=== PATIENT | female | born 1995 | race Caucasian/White ===

== ENCOUNTER 2018-01-18 13:43 | Emergency (ER) | payer OTHER | END 2018-01-18 14:25 | disposition home or self-care (01) | LOC: FTE 13:43 | DX: O26.899 Other specified pregnancy related conditions, unspecified trimester (principal); R10.9 Unspecified abdominal pain; Z98.890 Other specified postprocedural states | CPT/HCPCS: 99285-25 ==

== ENCOUNTER 2018-01-18 14:38 | Inpatient (IN) | payer BC, OTHER ==
[~2018-01-18 14:38] MED LIST: EPINEPHrine 1 MG INJ; PROPOFOL 200 MG INJ
[2018-01-18] MEDS ORDERED: CARBOPROST 250 MCG INJ IM (15:30)
[2018-01-18] MEDS ORDERED: OXYTOCIN 30 UNITS/LR 500 ML IV ×2 (15:30→19:37)
[2018-01-18] MEDS ORDERED: METHYLERGONOVINE 0.2 MG INJ IM (15:30)
[2018-01-18] MEDS ORDERED: MISOPROSTOL 200 MCG TAB PR (15:30)
[2018-01-18] MEDS: TERBUTALINE 1 MG/ML INJ SC ×2 (15:52→18:10)
[2018-01-18] MEDS: LACTATED RINGER'S 1,000 ML IV ×2 (15:53→19:05)
[2018-01-18 15:57] LABS: ADD MAN DIFF? NO
[2018-01-18 15:59] LABS: WHITE BLOOD COUNT 10.8 10^3/ul (4.8-10.8)
[2018-01-18 15:59] LABS: ABNORMAL IP MESSAGE 1; BASOPHILS % 0.2 % (0.0-2.0); EOSINOPHILS # 0.1 10^3/ul (0.0-0.5); EOSINOPHILS % 0.6 % (0.0-7.0); HEMATOCRIT 35.1 % (37.0-47.0); HEMOGLOBIN 11.4 g/dl (12.0-16.0); LYMPHOCYTES # 2.3 10^3/ul (0.8-2.9); LYMPHOCYTES % 21.6 % (15.0-51.0); MEAN CORPUSCULAR HEMOGLOBIN 26.3 pg (29.0-33.0); MEAN CORPUSCULAR HGB CONC 32.5 g/dl (32.0-37.0); MEAN CORPUSCULAR VOLUME 80.9 fl (82.0-101.0); MONOCYTE # 0.7 10^3/ul (0.3-0.9); MONOCYTES % 6.1 % (0.0-11.0); NEUTROPHIL # 7.7 10^3/ul (1.6-7.5); PLATELET COUNT 189 10^3/UL (140-415); RED BLOOD COUNT 4.34 10^6/ul (4.20-5.40); RED CELL DISTRIBUTION WIDTH 13.7 % (11.5-14.5)
[2018-01-18 16:00] LABS: POSITIVE DIFF @See below
[2018-01-18 16:41] LABS: ADD UMIC YES; UR ASCORBIC ACID NEGATIVE (NEGATIVE); UR BILIRUBIN (Dip) NEGATIVE (NEGATIVE); UR BLOOD (Dip) 1+ mg/dL (NEGATIVE); UR CLARITY CLEAR (CLEAR); UR COLOR YELLOW (YELLOW); UR GLUCOSE (Dip) NEGATIVE (NEGATIVE); UR KETONES (Dip) NEGATIVE (NEGATIVE); UR LEUKOCYTE ESTERASE (Dip) NEGATIVE Leu/ul (NEGATIVE); UR MUCUS FEW /HPF (NONE SEEN); UR NITRITE (Dip) NEGATIVE (NEGATIVE); UR RBC 1 /HPF (0-5); UR SPECIFIC GRAVITY (Dip) 1.011 (1.003-1.030); UR TOTAL PROTEIN (Dip) NEGATIVE (NEGATIVE); UR UROBILINOGEN (Dip) NEGATIVE (NEGATIVE); UR WBC 2 /HPF (0-5)
[2018-01-18 16:50] LABS: INR 0.89; PARTIAL THROMBOPLASTIN TIME 26.8 Sec (23.0-35.0); PROTIME 12.1 Sec (11.9-14.9); PT RATIO 0.9
[2018-01-18 16:50] LABS: HEPATITIS B SURFACE ANTIGEN NEGATIVE (NEGATIVE)
[2018-01-18 16:56] LABS: AMPHETAMINE/METHAMPHETAMINE Negative (NEGATIVE); BARBITURATES Negative (NEGATIVE); BENZODIAZEPINES Negative (NEGATIVE); CANNABINOIDS Negative (NEGATIVE); COCAINE Negative (NEGATIVE); OPIATES Negative (NEGATIVE)
[2018-01-18 17:00] LABS: HIV 1&2 ANTIBODY NEGATIVE (NEGATIVE)
[2018-01-18] MEDS ORDERED: FAMOTIDINE 20 MG INJ (18:51)
[2018-01-18] MEDS ORDERED: ONDANSETRON 4 MG INJ (18:51)
[2018-01-18] MEDS ORDERED: METOCLOPRAMIDE 10 MG INJ (18:51)
[2018-01-18] MEDS: METOCLOPRAMIDE 10 MG INJ IV (19:00)
[2018-01-18] MEDS: FAMOTIDINE 20 MG INJ IV (19:00)
[2018-01-18] MEDS: CITRIC ACID/NA CITRATE 30 ML CUP PO (19:00)
[2018-01-18] MEDS: ONDANSETRON 4 MG INJ IV (19:04)
[2018-01-18] MEDS ORDERED: BUPIVACAINE 0.75%/DEXT (SPINAL) 2 ML INJ (19:26)
[2018-01-18] MEDS ORDERED: morphine SULFATE/PF (10 MG/10 ML) INJ (19:26)
[2018-01-18] MEDS ORDERED: OXYTOCIN 10 UNIT INJ (19:26)
[2018-01-18] MEDS ORDERED: NALOXONE (0.4 MG/ML) INJ IV (19:30)
[2018-01-18] MEDS ORDERED: FENTAnyl 50 MCG/ML VIAL IV ×2 (19:30)
[2018-01-18] MEDS ORDERED: HYDROmorphONE 1 MG/5 ML IV SYRINGE IV ×3 (19:30)
[2018-01-18] MEDS ORDERED: ZOLPIDEM 5 MG TAB PO (19:30)
[2018-01-18] MEDS ORDERED: KETOROLAC 30 MG INJ IV (19:30)
[2018-01-18] MEDS ORDERED: DIPHENHYDRAMINE 50 MG INJ IV ×2 (19:30)
[2018-01-18] MEDS ORDERED: HYDROmorphONE 0.5 MG/0.5 ML SYG IV ×2 (19:30)
[2018-01-18] MEDS ORDERED: ONDANSETRON 4 MG INJ IV ×2 (19:30)
[2018-01-18] MEDS ORDERED: MIDAZOLAM 1 MG/ML 2 ML INJ (20:56)
[2018-01-18 21:03] LABS: HEPATITIS C VIRAL ANTIBODY NEGATIVE (NEGATIVE)
[2018-01-18] MEDS: OXYTOCIN 30 UNITS/LR 500 ML IV (21:37)
[2018-01-18] MEDS: CEFAZOLIN 2 GM/50 ML (PMX) 50 ML IVPB (21:38)
[2018-01-19] MEDS ORDERED: OXYCODONE/ACETAMINOPHEN (5/325) TAB PO ×3 (00:30→19:30)
[2018-01-19] MEDS ORDERED: METHYLERGONOVINE 0.2 MG INJ IM (00:30)
[2018-01-19] MEDS ORDERED: IBUPROFEN 600 MG TAB PO (00:30)
[2018-01-19] MEDS ORDERED: MISOPROSTOL 200 MCG TAB PR (00:30)
[2018-01-19] MEDS ORDERED: OXYTOCIN 30 UNITS/LR 500 ML IV (00:30)
[2018-01-19] MEDS ORDERED: BISACODYL 10 MG SUPP PR (00:30)
[2018-01-19] MEDS ORDERED: ONDANSETRON 4 MG INJ IV (00:30)
[2018-01-19] MEDS ORDERED: ACETAMINOPHEN 325 MG TAB PO (00:30)
[2018-01-19] MEDS ORDERED: CARBOPROST 250 MCG INJ IM (00:30)
[2018-01-19] MEDS: OXYTOCIN 30 UNITS/LR 500 ML IV (01:27)
[2018-01-19] MEDS: CEFAZOLIN 1 GM/50 ML (PMX) 50 ML IVPB ×3 (03:50→18:13)
[2018-01-19] MEDS: LANOLIN 7 GM TUBE TOP (08:54)
[2018-01-19] MEDS: SENNA/DOCUSATE NA (8.6MG/50MG) TAB PO (08:55)
[2018-01-19] MEDS: DIPHENHYDRAMINE 50 MG INJ IV (09:26)
[2018-01-19 09:29] LABS: ADD MAN DIFF? NO
[2018-01-19 09:32] LABS: WHITE BLOOD COUNT 11.4 10^3/ul (4.8-10.8)
[2018-01-19 09:32] LABS: ABNORMAL IP MESSAGE 1; BASOPHILS % 0.3 % (0.0-2.0); EOSINOPHILS # 0.1 10^3/ul (0.0-0.5); EOSINOPHILS % 0.6 % (0.0-7.0); HEMATOCRIT 27.6 % (37.0-47.0); HEMOGLOBIN 9.1 g/dl (12.0-16.0); LYMPHOCYTES # 2.4 10^3/ul (0.8-2.9); LYMPHOCYTES % 21.3 % (15.0-51.0); MEAN CORPUSCULAR HEMOGLOBIN 26.9 pg (29.0-33.0); MEAN CORPUSCULAR VOLUME 81.7 fl (82.0-101.0); MEAN PLATELET VOLUME 13.6 fl (7.4-10.4); MONOCYTES % 8.6 % (0.0-11.0); NEUTROPHIL # 7.8 10^3/ul (1.6-7.5); NEUTROPHILS % 68.8 % (39.0-77.0); PLATELET COUNT 138 10^3/UL (140-415); RED BLOOD COUNT 3.38 10^6/ul (4.20-5.40); RED CELL DISTRIBUTION WIDTH 13.8 % (11.5-14.5)
[2018-01-19 09:34] LABS: POSITIVE DIFF @See below
[2018-01-19 10:01] LABS: RUBELLA ANTIBODY - IGG 1.73 index
[2018-01-19] MEDS: KETOROLAC 30 MG INJ IV (13:04)
[2018-01-19] MEDS: LACTATED RINGER'S 1,000 ML IV ×2 (13:06→23:30)
[2018-01-19] MEDS: OXYCODONE/ACETAMINOPHEN (5/325) TAB PO (20:22)
[2018-01-19] MEDS: IBUPROFEN 600 MG TAB PO (20:22)
[2018-01-19 20:30] LABS: RAPID PLASMA REAGIN NONREACTIVE (NR)
[2018-01-20] MEDS: LACTATED RINGER'S 1,000 ML IV ×3 (07:30→21:40)
[2018-01-20 08:24] LABS: ADD MAN DIFF? NO
[2018-01-20 08:28] LABS: WHITE BLOOD COUNT 12.9 10^3/ul (4.8-10.8)
[2018-01-20 08:28] LABS: ABNORMAL IP MESSAGE 1; BASOPHILS % 0.2 % (0.0-2.0); EOSINOPHILS # 0.1 10^3/ul (0.0-0.5); EOSINOPHILS % 0.5 % (0.0-7.0); HEMATOCRIT 28.7 % (37.0-47.0); HEMOGLOBIN 9.4 g/dl (12.0-16.0); LYMPHOCYTES # 1.4 10^3/ul (0.8-2.9); LYMPHOCYTES % 11.1 % (15.0-51.0); MEAN CORPUSCULAR HEMOGLOBIN 26.8 pg (29.0-33.0); MEAN CORPUSCULAR HGB CONC 32.8 g/dl (32.0-37.0); MEAN CORPUSCULAR VOLUME 81.8 fl (82.0-101.0); MEAN PLATELET VOLUME 13.5 fl (7.4-10.4); MONOCYTE # 0.7 10^3/ul (0.3-0.9); MONOCYTES % 5.6 % (0.0-11.0); NEUTROPHIL # 10.6 10^3/ul (1.6-7.5); NEUTROPHILS % 82.1 % (39.0-77.0); PLATELET COUNT 167 10^3/UL (140-415); RED BLOOD COUNT 3.51 10^6/ul (4.20-5.40); RED CELL DISTRIBUTION WIDTH 14.1 % (11.5-14.5)
[2018-01-20 08:35] LABS: POSITIVE DIFF @See below
[2018-01-20 08:55] LABS: ALANINE AMINOTRANSFERASE 18 IU/L (13-69); ALBUMIN 2.9 g/dl (3.3-4.9); ALBUMIN/GLOBULIN RATIO 1.16; ALKALINE PHOSPHATASE 104 IU/L (42-121); ANION GAP 4 (5-13); ASPARTATE AMINO TRANSFERASE 21 IU/L (15-46); BILIRUBIN,INDIRECT 0.3 mg/dl (0-1.1); BILIRUBIN,TOTAL 0.3 mg/dl (0.2-1.3); BLOOD UREA NITROGEN 4 mg/dl (7-20); CALCIUM 8.6 mg/dl (8.4-10.2); CARBON DIOXIDE 29 mmol/L (21-31); CHLORIDE 104 mmol/L (97-110); CREATININE 0.42 mg/dl (0.44-1.00); Estimated GFR > 60 mL/min (>60); GLUCOSE 96 mg/dl (70-220); POTASSIUM 3.5 mmol/L (3.5-5.1); SODIUM 137 mmol/L (135-144); TOTAL PROTEIN 5.4 g/dl (6.1-8.1)
[2018-01-20] MEDS: MAGNESIUM HYDROXIDE 30ML CUP PO (09:56)
[2018-01-20] MEDS: IBUPROFEN 600 MG TAB PO (09:56)
[2018-01-20] MEDS: SENNA/DOCUSATE NA (8.6MG/50MG) TAB PO (09:57)
[2018-01-20] MEDS: DOCUSATE SODIUM 100 MG CAP PO (21:39)
[2018-01-21] MEDS: IBUPROFEN 600 MG TAB PO ×2 (05:59→12:05)
[2018-01-21] MEDS: LACTATED RINGER'S 1,000 ML IV (06:57)
[2018-01-21] MEDS: DOCUSATE SODIUM 100 MG CAP PO (08:50)
[2018-01-22 11:46] LABS: RUBELLA ANTIBODY - IGM <20.00 AU/mL
== END 2018-01-21 13:50 | disposition home or self-care (01) | DRG 788 ==
LOC: L-D 14:38 → PP1 01-19 00:26 → L-D 15:56
PROVIDERS: Obstetrics & Gynecology
PROC: 10D00Z1 Extraction of Products of Conception, Low, Open Approach (ICD-10-PCS; principal; 2018-01-18 19:15)
DX: O34.211 Maternal care for low transverse scar from previous cesarean delivery (principal); Z3A.37 37 weeks gestation of pregnancy; Z37.0 Single live birth
CPT/HCPCS: 76815; 76818; 80053; 80307; 81001; 85025; 85610; 85730; 86592; 86703; 86762; 86803; 86850; 86900; 86901; 87340; 88307; 99464